=== PATIENT | male | born 1985 | race Caucasian/White ===

== ENCOUNTER 2017-09-13 11:56 | Emergency (ER) | payer BC, OTHER ==
[2017-09-13 12:03] VITALS: BP 132/85; PULSE 81; RESP 18; TEMP 97; O2SAT 98
--- NOTE | 2017-09-13 12:55 | ED PDOC ---
HPI: Back Time Seen by Provider: 09/13/17 12:48 Chief Complaint (Nursing): Back Pain Chief Complaint (Provider): Back pain History Per: Patient History/Exam Limitations: no limitations Onset/Duration Of Symptoms: Hrs (x3), Intermittent Episodes Current Symptoms Are (Timing): Still Present Quality Of Discomfort: "Pain" Previous Symptoms: None Associated Symptoms: None Exacerbating Factor(s): Movement Additional Complaint(s): Valentín Reina is a 31 year old male, with a past medical history of asthma, who presents to the emergency complaining of intermittent upper back pain onset since 8:45am this morning. He states the pain is worst with movement. Patient report this morning he got into an argument with her daughter's teacher at school, he was yelling while holding her 4 y/o daughter in his arms. Patient states when he got in his car he felt a severe upper back pain. He took Motrin at 9:30 am with no relief. He denies any other medical complaints. PMD: None provided. Past Medical History Reviewed: Historical Data, Nursing Documentation, Vital Signs Vital Signs: Last Vital Signs Temp 97 F L 09/13/17 12:01 Pulse 81 09/13/17 12:01 Resp 18 09/13/17 12:01 BP 132/85 09/13/17 12:01 Pulse Ox 98 09/13/17 12:01 - Medical History PMH: Asthma - Surgical History Surgical History: No Surg Hx - Family History Family History: States: Unknown Family Hx - Home Medications Home Medications: Ambulatory Orders Medication Instructions Recorded Polymyxin/Trimethoprim Sulfate 2 - 3 drop OD Q6 #1 bottle 12/26/14 [Polytrim Ophth Soln] Naproxen [Naprosyn] 500 mg PO Q12 PRN #14 tablet 09/13/17 diaZEpam [Valium] 5 mg PO ONCE PRN #1 tab 09/13/17 - Allergies Allergies/Adverse Reactions: Allergies Allergy/AdvReac Type Severity Reaction Status Date / Time No Known Allergies Allergy Verified 12/26/14 10:50 Review of Systems ROS Statement: Except As Marked, All Systems Reviewed And Found Negative Musculoskeletal: Positive for: Back Pain (upper) Physical Exam - Reviewed Nursing Documentation Reviewed: Yes Vital Signs Reviewed: Yes - Physical Exam Appears: Positive for: Non-toxic, No Acute Distress Head Exam: Positive for: ATRAUMATIC, NORMAL INSPECTION, NORMOCEPHALIC Skin: Positive for: Normal Color, Warm, Dry Eye Exam: Positive for: Normal appearance Neck: Positive for: Painless ROM Respiratory: Positive for: Normal Breath Sounds (clear auscultation b/l). Negative for: Respiratory Distress Back: Positive for: Vertebral Tenderness (Mild right parathoracic lumbar tenderness noted. ). Negative for: Other (No bony tenderness) Extremity: Positive for: Normal ROM. Negative for: Deformity, Swelling Neurologic/Psych: Positive for: Alert, Oriented - ECG O2 Sat by Pulse Oximetry: 98 (RA) Pulse Ox Interpretation: Normal Medical Decision Making Medical Decision Making: Initial Impression: musculoskeletal pain Initial Plan: --reevaluation ~ Scribe Attestation: Documented by Ton Steven, acting as a scribe for Harsha Lozada PA-C. Provider Scribe Attestation: All medical record entries made by the Scribe were at my direction and personally dictated by me. I have reviewed the chart and agree that the record accurately reflects my personal performance of the history, physical exam, medical decision making, and the department course for this patient. I have also personally directed, reviewed, and agree with the discharge instructions and disposition. Disposition - Clinical Impression Clinical Impression: Back strain - Patient ED Disposition Is Patient to be Admitted: No - Disposition Disposition: Routine/Home Disposition Time: 12:50 Condition: FAIR Prescriptions: diaZEpam [Valium] 5 mg PO ONCE PRN #1 tab PRN Reason: Muscle Spasm Naproxen [Naprosyn] 500 mg PO Q12 PRN #14 tablet PRN Reason: Pain, Moderate (4-7) Instructions: Thoracic Back Strain (ED) Forms: [facility] ([place]ic), [facility] ED School/Work Excuse
== END 2017-09-13 13:05 | disposition home or self-care (01) ==
LOC: H.ER 11:56
DX: S39.012A Strain of muscle, fascia and tendon of lower back, initial encounter (principal); X50.9XXA Other and unspecified overexertion or strenuous movements or postures, initial encounter; Y92.89 Other specified places as the place of occurrence of the external cause; J45.909 Unspecified asthma, uncomplicated